=== PATIENT | male | born 1980 | race Caucasian/White ===

== ENCOUNTER 2023-11-15 09:10 | Outpatient (CLI) | payer BC, SELFPAY ==
[2023-11-15 12:23] LABS: Basophils Percent Auto 0.6 % (0.2-1.2); Eosinophils Absolute Auto 0.1 K/mm3 (0-0.3); Eosinophils Percent Auto 2.1 % (0-4.4); Hematocrit 44.3 % (42.0-52.0); Hemoglobin 15.7 g/dL (14.0-18.0); Immature Granulocyte Absolute 0.03 K/mm3 (0.00-0.031); Immature Granulocyte Percent A 0.4 % (0-0.5); Lymphocytes Absolute Auto 1.75 K/mm3 (0.9-3.2); Lymphocytes Percent Auto 25.9 % (18.3-44.2); Mean Corpuscular HGB Conc 35.4 g/dl (32-36); Mean Corpuscular Hemoglobin 31.6 pg (26-34); Mean Corpuscular Volume 89.1 fl (80-100); Mean Platelet Volume 9.6 fl (7.4-10.4); Monocytes Absolute Auto 0.8 K/mm3 (0.1-0.6); Monocytes Percent Auto 11.7 % (2.6-8.5); Neutrophils Percent Auto 59.3 % (45.5-73.1); Platelet Count Result 222 k/mm3 (150-375); Red Blood Count 4.97 M/mm3 (4.6-6.20); Red Cell Distribution Width 11.7 % (11.5-14.5); White Blood Count 6.8 K/mm3 (4.5-10.0)
[2023-11-15 13:32] LABS: Alanine Aminotransferase 24 U/L (6-50); Albumin Level 4.5 g/dL (3.5-5.1); Alkaline Phosphatase 58 U/L (38-126); Anion Gap 9 mmol/L (4-12); Aspartate Amino Transferase 32 U/L (17-59); Bilirubin,Total 0.4 mg/dL (0.2-1.3); Blood Urea Nitrogen 15 mg/dL (9-20); Calcium 9.7 mg/dL (8.4-10.2); Carbon Dioxide 30 mmol/L (22-30); Chloride 100 mmol/L (98-107); Cholesterol 189 mg/dL (0-200); Estimated Glomerular Filt Rate > 60; Glucose 88 mg/dL (65-110); HDL Direct 46 mg/dL; Potassium 4.1 mmol/L (3.4-5.0); Sodium 139 mmol/L (137-145); Triglycerides 224 mg/dL (<150)
[2023-11-15 13:43] LABS: LDL Cholesterol Direct 103 mg/dL
[2023-11-15 13:59] LABS: Prostate Specific Antigen 1.5 ng/mL (< OR = 4.0)
[2023-11-15 14:35] LABS: Folic Acid 6.4 ng/mL (2.76->20)
[2023-11-21 13:17] LABS: Testosterone Free 71.7 pg/mL (35.0-155.0); Testosterone Total 356 ng/dL (250-1100)
== END 2023-11-15 09:11 | disposition home or self-care (01) ==
LOC: ANHGOSHLAB 09:11
PROVIDERS: PCP Internal Medicine; Visit Provider Internal Medicine
DX: R53.83 Other fatigue (principal); E29.1 Testicular hypofunction; Z13.220 Encounter for screening for lipoid disorders; Z13.228 Encounter for screening for other metabolic disorders; Z12.5 Encounter for screening for malignant neoplasm of prostate; Z13.29 Encounter for screening for other suspected endocrine disorder; Z13.0 Encounter for screening for diseases of the blood and blood-forming organs and certain disorders involving the immune mechanism
CPT/HCPCS: 36415; 80053; 80061; 82607; 82746; 84153; 84402; 84403; 84443; 85025; G0103

== ENCOUNTER 2024-07-17 15:29 | Outpatient (CLI) | payer OTHER, SELFPAY ==
--- OUTSIDE RECORDS SUMMARY | 2024-07-17 15:45 | XMS_ITS | Clinical Summary ---
Author Organization [facility] Address [address] [place] [address] Care Team Providers Care Manager Workers Compensation Name Role Phone Mina Enriquez DO Primary Care Provider Source Comments [facility],non-owned Affiliates and Associated Physician Practices is amultiple site organization consisting of ambulatory clinics and hospital sitesin [place], [place], [place] and [place]. This disclosure is being madepursuant to the Care Everywhere program and may not contain all information available regarding this patient. Last updated 17.[facility] [employer] Allergies Active Allergy Reactions Criticality Noted Date Comments Shellfish Allergy Rash Medium 03/16/2021 Medications * Be aware that medications may not be up to date on this document. Alwaysverify current medications with the patient. 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 Gender Identity Not on file Sexual Orientation Not on file Plan of Treatment Health Maintenance Due Date Last Done Comments LIPID TESTING 1980 HIV SCREENING 07/08/1995 HEPATITIS C SCREENING 07/03/1998 DTAP/TDAP/TD VACCINES (1 - Tdap) 07/08/1999 HEPATITIS B VACCINE (1 of 3 - 19+ 3-dose series) 07/08/1999 COVID-19 VACCINE (1 - 2023-2 5 season) 2023 DEPRESSION SCREENING 03/19/2024 INFLUENZA VACCINE (Season Ended) 2024 02/01/2021, 03/15/2017 ZOSTER VACCINE (1 of 2) 2030 HIB VACCINE Aged Out No longer eligi ble based on patient's age to complete this topic HPV VACCINE Aged Out No longer eligi ble based on patient's age to complete this topic MENINGOCOCCAL (Group B) VACCINE SHARED DECISION-MAKING Aged Out No longer eligible based on patient's age to complete this topic MENINGOCOCCAL GROUPS A/C/Y/W VACCINE Aged Out No longer eligible b ased on patient's age to complete this topic PNEUMOCOCCAL VACCINE Aged Out No long er eligible based on patient's age to complete this topic Insurance [facility] Care Teams Manager Workers Compensation Relationship Specialty Start Date End Date Mina Enriquez DO PCP - General Internal Medicine 03/15/17
[2024-07-17 19:22] LABS: Basophils Percent Auto 0.5 % (0.2-1.2); Eosinophils Absolute Auto 0.1 K/mm3 (0-0.3); Eosinophils Percent Auto 1.1 % (0-4.4); Hematocrit 49.4 % (42.0-52.0); Hemoglobin 16.8 g/dL (14.0-18.0); Immature Granulocyte Absolute 0.02 K/mm3 (0.00-0.031); Immature Granulocyte Percent A 0.3 % (0-0.5); Lymphocytes Absolute Auto 1.66 K/mm3 (0.9-3.2); Lymphocytes Percent Auto 25.5 % (18.3-44.2); Mean Corpuscular Hemoglobin 31.4 pg (26-34); Mean Corpuscular Volume 92.3 fl (80-100); Mean Platelet Volume 9.1 fl (7.4-10.4); Monocytes Absolute Auto 0.6 K/mm3 (0.1-0.6); Monocytes Percent Auto 8.9 % (2.6-8.5); Neutrophils Absolute Auto 4.2 K/mm3 (1.3-6.7); Neutrophils Percent Auto 63.7 % (45.5-73.1); Platelet Count Result 217 k/mm3 (150-375); Red Blood Count 5.35 M/mm3 (4.6-6.20); Red Cell Distribution Width 12.1 % (11.5-14.5); White Blood Count 6.5 K/mm3 (4.5-10.0)
[2024-07-17 20:21] LABS: Alanine Aminotransferase 37 U/L (6-50); Albumin Level 4.7 g/dL (3.5-5.1); Alkaline Phosphatase 50 U/L (38-126); Anion Gap 6 mmol/L (4-12); Aspartate Amino Transferase 31 U/L (17-59); Bilirubin,Total 0.8 mg/dL (0.2-1.3); Blood Urea Nitrogen 15 mg/dL (9-20); Calcium 9.6 mg/dL (8.4-10.2); Carbon Dioxide 34 mmol/L (22-30); Chloride 100 mmol/L (98-107); Estimated Glomerular Filt Rate > 60; Glucose 89 mg/dL (65-110); Potassium 4.7 mmol/L (3.4-5.0); Sodium 140 mmol/L (137-145)
[2024-07-17 20:52] LABS: Prostate Specific Antigen 2.7 ng/mL (< OR = 4.0)
== END 2024-07-17 15:30 | disposition home or self-care (01) ==
LOC: ANHGOSHLAB 15:30
PROVIDERS: PCP Internal Medicine; Visit Provider Nurse Practitioner
DX: E29.1 Testicular hypofunction (principal); Z13.228 Encounter for screening for other metabolic disorders; Z13.29 Encounter for screening for other suspected endocrine disorder; Z13.0 Encounter for screening for diseases of the blood and blood-forming organs and certain disorders involving the immune mechanism
CPT/HCPCS: 36415; 80053; 84153; 84402; 84403; 85025

== ENCOUNTER 2024-07-17 15:39 | Outpatient (CLI) | payer OTHER, SELFPAY ==
--- NOTE | ~2024-07-17 | XR_ITS ---
XR cervical spine 4-5V Ordering provider: Briana Mueller NP History: . M54.12 - Radiculopathy, cervical region . Comparison: None. FINDINGS: VERTEBRAL BODIES: Normal height and alignment. No visible fracture or subluxation. The dens is intact . Degenerative changes of the spine. DISK SPACES: Narrowing of the disc C6-C7. Otherwise Well maintained. PARASPINOUS SOFT TISSUES: No prevertebral soft tissue swelling. IMPRESSION: No acute osseous abnormality cervical spine. Degenerative disc disease at the level of C6-C7. Reviewed, dictated and finalized at location A.
== END 2024-07-17 15:40 | disposition home or self-care (01) ==
LOC: GOSHIMG 15:40
PROVIDERS: PCP Internal Medicine; Visit Provider Nurse Practitioner
DX: M50.323 Other cervical disc degeneration at C6-C7 level (principal)
CPT/HCPCS: 72050

== ENCOUNTER 2024-08-27 13:00 | Outpatient (RCR) | payer OTHER, SELFPAY ==
--- NOTE | 2024-07-17 15:57 | OPREHPOC ---
Outpatient Therapy Plan of Care This is a Multidisciplinary Plan of Care that may contain components documented by all disciplines (PT, OT, and ST.) PT Problem 1 PT Problem #1 Knowledge Deficit PT Goal 1 Goal / Goal Update 1. Pt to be IND with issued HEP Target Visit 8 PT Problem 2 PT Problem #2 Pain PT Goal 1 Goal / Goal Update 1. Pt to report neck pain no greater than 3/10 in the last week. 2. Pt to decline radicular symptoms in the last week. 3. Pt to decline any headaches in the last week. Target Visit 8 PT Problem 3 PT Problem #3 Impaired Strength PT Goal 1 Goal / Goal Update 1. Pt to improve R shoulder strength to grossly 5/ 5
--- NOTE | 2024-07-17 15:57 | PTOPEVAL1 ---
Assessment and note entered by Tan Montero, PT, DPT Evaluation Information Assessment Status Evaluation Diagnosis cervical radiculopathy ICD-10 Condition Codes (PT) Cervicalgia M54.2,Radiculopathy, cervical M54.13 Subjective Information Pt states he thinks he has a pinched nerve, he gets pain that shoots down the back of his neck, across the back of his R shoulder, and down into his triceps. Pain has had this pain for years and it always ebbs and flows, has been worse since Mar . Got a sub occipital release tool which has helped some, prior to that everything caused pain. Gets a burning pain. Is able to sleep but will wake at times with R shoulder pain. Likes to lift weights but has had to stop d/t pain and loss of strength. 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 Reported Pain Level Pain Score 2: Self Report Assessment PT Clinical Summary Pt presents to therapy today for his initial evaluation with a diagnosis of cervical radiculopathy. 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 There is point tenderness around C4-5. Pt also reports frequent headaches. Skilled therapy services are indicated to improve posture, decreased radicular symptoms, to manage pain, and to return to PLOF. Plan of Care Interventions Electrical Stimulation,Hot Pack/Cold Pack,Manual Therapy,Neuro Re-education,Patient/Caregiver Education,Therapeutic Activities,Therapeutic Exercise PT Services Indicated Yes Treatment Frequency and 1-2x/wk for 8 visits Duration These treatments will address the objective and functional deficits as defined above. The patient will be advanced safely and appropriately in order for the patient to progress towards his/her prior level of function. Additional exercises will be introduced and as well as a comprehensive home exercise program upon discharge, if needed, ?to ensure carryover of functional gains achieved in the clinic. This treatment plan has been reviewed and agreement upon by the patient.
--- NOTE | 2024-08-05 13:18 | PCPTNOTE ---
Patient called & cancelled scheduled appointment this date due to something coming up at work.
--- NOTE | 2024-08-27 13:56 | PTOPDC ---
Assessment and note entered by Andrew Spain Evaluation Information Assessment Status Discharge Diagnosis cervical radiculopathy ICD-10 Condition Codes (PT) Cervicalgia M54.2,Radiculopathy, cervical M54.13 Subjective Information Pt. report no change in his symptoms. He states that he still has some difficulty with sleep. He states that he still gets pain that shoots into the upper trap on the right. He reports that he will schedule a follow up with his doctor regarding his continued pain. He reports that headaches are still present and feels they may have worsened. He reports that he will continue with his HEP> Reported Pain Level Pain Score 4: Self Report Pain Score 3: Self Report Assessment PT Clinical Summary Mr. Jeff has attended a total of 5 treatment sessions. Pt. has reported no change in his symptoms since initiating PT. Treatment thus far has focused on postural awareness, manual techniques, including soft tissue mobilization and manual distraction, to decrease radicular symptoms and postural education. Given pt. remaining pain recommend follow up with his M.D. to discuss further imagery and treatment options. He will be discharged from our care at this time. Plan of Care PT Services Indicated No
== END 2024-08-27 15:35 | disposition home or self-care (01) ==
LOC: ANHGOSHPT 13:00
PROVIDERS: PCP Internal Medicine; Visit Provider Nurse Practitioner
DX: M54.12 Radiculopathy, cervical region (principal)
CPT/HCPCS: 97110; 97112; 97140; 97161

== ENCOUNTER 2024-09-22 11:24 | Outpatient (CLI) | payer OTHER, SELFPAY ==
--- OUTSIDE RECORDS SUMMARY | 2024-09-22 11:35 | XMS_ITS | Clinical Summary ---
Author Organization [facility] Address [address] [place] [address] Care Team Providers Care Cut Off Saw Operator Pipe Blanks Name Role Phone Mina Enriquez DO Primary Care Provider Source Comments [facility],non-owned Affiliates and Associated Physician Practices is amultiple site organization consisting of ambulatory clinics and hospital sitesin [place], [place], [place] and [place]. This disclosure is being madepursuant to the Care Everywhere program and may not contain all information available regarding this patient. 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
== END 2024-09-22 11:25 | disposition home or self-care (01) ==
LOC: ANHGOSHLAB 11:25
PROVIDERS: PCP Internal Medicine; Visit Provider Internal Medicine
DX: E29.1 Testicular hypofunction (principal)
CPT/HCPCS: 36415; 84402; 84403

== ENCOUNTER 2025-02-25 09:12 | Outpatient (CLI) | payer OTHER, SELFPAY ==
--- NOTE | ~2025-02-25 | MR_ITS ---
EXAMINATION: MR cervical spine wo con DATE: 02/25/2025 09:56 INDICATION: Radiculopathy TECHNIQUE: Magnetic resonance imaging (MRI) of the cervical spine was performed without intravenous contrast. Sequences included sagittal T2-weighted FSE, sagittal T2-weighted FS FSE, sagittal T1-weighted FSE, axial MERGE, and axial T2-weighted FSE. COMPARISON: September 06, 2015 FINDINGS: Degenerative changes throughout the cervical spine involving disc spaces uncovertebral joints and pedicles. Spinal cord within the cervical spine normal in signal with no discrete medullary cord lesions or gross myelopathic changes. Visualized portions of the the posterior fossa unremarkable. Level specific findings as follows: 5 C2-3: Mild degenerative change C3-4: Mild to moderate bilateral neural foraminal narrowing right worse than left. No spinal canal stenosis or discrete disc protrusion. C4-5: Mild left-sided neural foraminal narrowing. Otherwise normal. C5-6: Moderately severe posterior spondylosis and uncovertebral changes resulting moderately severe left-sided neural foraminal narrowing, which is worse compared to the 2016 exam. See image 20, series 6 and series 7. Mild right-sided neural foraminal narrowing. No spinal canal stenosis or discrete dis c protrusion. C6-7: Moderately severe spondylosis also present at this level with mild to moderate right and mild left-sided neural foraminal narrowing. No spinal canal stenosis or discrete disc protrusion. C7-T1: Minimal degenerative change. IMPRESSION: Multilevel degenerative changes with no spinal canal stenosis or discrete disc protrusion. No foraminal narrowing is most advanced at the C5-6 level where there is at least moderately severe left-sided neural foraminal narrowing which could potentially impinge the left C6 nerve root. Reviewed, dictated and finalized at location A. PPING SHOVEL OILER IMPRESSION: Multilevel degenerative changes with no spinal canal stenosis or di screte disc protrusion. No foraminal narrowing is most advanced at the C5-6 lev el where there is at least moderately severe left-sided neural foraminal narrow ing which could potentially impinge the left C6 nerve root.
== END 2025-02-25 09:13 | disposition home or self-care (01) ==
LOC: MICIMG 09:13
PROVIDERS: PCP Internal Medicine; Visit Provider Internal Medicine
DX: M54.12 Radiculopathy, cervical region (principal); M50.30 Other cervical disc degeneration, unspecified cervical region
CPT/HCPCS: 72141